=== PATIENT | female | born 1980 | race Caucasian/White ===

== ENCOUNTER 2016-07-20 19:27 | Inpatient (IN) | payer MEDICAID ==
[~2016-07-20] VITALS: Ht 162.6 cm; Wt 84.5 kg
[~2016-07-20 19:27] MED LIST: DOXY-216 PO
[2016-07-20] MEDS ORDERED: ONDANSETRON HCL 4 MG/2 ML VIAL IV ONE (20:00)
[2016-07-20] MEDS ORDERED: HYDROmorphone HCL 2 MG/ML VL IV ONE (20:00)
[2016-07-20 20:16] LABS: Basophils # (auto) 0 uL; Basophils % (auto) 0.1 % (0.0-2.0); Eosinophils # (auto) 0.2 uL; Eosinophils % (auto) 1.4 % (0.0-7.0); Hematocrit 32.6 % (36.0-46.0); Hemoglobin 10.7 g/dL (12.2-16.2); Lymphocytes % (auto) 6.7 % (10.0-50.0); Mean Corpuscular Hemoglobin 27.7 pg (28.0-32.0); Mean Corpuscular Hgb Conc. 32.8 g/dL (32.0-36.0); Mean Corpuscular Volume 84.3 fL (80.0-100.0); Mean Platelet Volume 7.5 fL (7.4-10.4); Monocytes # (auto) 0.8 uL; Monocytes % (auto) 5.1 % (0.0-12.0); Neutrophils # (auto) 12.8 uL; Neutrophils % (auto) 86.7 % (37.0-80.0); Platelet Count (auto) 518 10^3/uL (140-450); Red Cell Distribution Width 16.4 % (11.6-16.0); White Blood Cell 14.8 10^3/uL (4.4-10.8)
[2016-07-20 20:35] LABS: Albumin 2.6 g/dL (3.4-5.0); BUN/Creatinine Ratio 23.8; Calcium 8.3 mg/dL (8.5-10.1); Potassium 3.6 mmol/L (3.5-5.1)
[2016-07-20 20:37] LABS: Bilirubin, Total 0.5 mg/dL (0.2-1.0); Total Protein 7.7 g/dL (6.4-8.2)
[2016-07-20] MEDS ORDERED: ACETAMINOPHEN 325 MG TAB PO ONE (21:15)
[2016-07-20] MEDS ORDERED: metroNIDAZOLE 500MG/100ML 100 ML IV ONE (21:30)
[2016-07-20 22:50] LABS: Urine Bilirubin Negative (Negative); Urine Color Brown (Yellow); Urine Glucose Normal (Normal); Urine Ketone Negative (Negative); Urine Mucus FEW (None Seen); Urine Nitrite Negative (Negative); Urine RBC 690 /hpf (0 - 4); Urine Squamous Epithelial Cell FEW /hpf (<5); Urine Urobilinogen Normal (Negative); Urine WBC Clumps PRESENT /hpf (None Seen)
[2016-07-20 22:53] LABS: Urine Blood 3+ /uL (Negative)
[2016-07-21] VITALS (9 sets, daily range): BP systolic 118–137; BP diastolic 67–87
[2016-07-21] MEDS ORDERED: SODIUM CHLORIDE 0.9% 1,000 ML IV SCH (00:08)
[2016-07-21] MEDS ORDERED: ONDANSETRON HCL 4 MG/2 ML VIAL IV PRN (00:15)
[2016-07-21] MEDS ORDERED: LEVOFLOXACIN 500MG 100 ML IV ONE (00:15)
[2016-07-21] MEDS ORDERED: ACETAMINOPHEN 325 MG TAB PO PRN (00:15)
[2016-07-21] MEDS ORDERED: SODIUM CHLORIDE 0.9% 500 ML IV ONE (00:15)
[2016-07-21] MEDS ORDERED: METOPROLOL TARTRATE 25 MG TAB PO ONE (00:15)
[2016-07-21] MEDS: HYDROmorphone HCL 2 MG/ML VL IV PRN ×6 (01:23→21:35)
[2016-07-21] MEDS: HYDROcodone-ACET 5/325MG TAB PO PRN ×5 (02:59→23:57)
[2016-07-21] MEDS ORDERED: [UNRECOGNIZED DRUG - CODE] PO (04:30)
[2016-07-21] MEDS: FAMOTIDINE 20 MG TAB PO SCH ×2 (09:22→21:35)
[2016-07-21] MEDS ORDERED: IOHEXOL 300 MG/ML 100ML BOTTLE IJ ONE (09:54)
[2016-07-21] MEDS ORDERED: METOPROLOL TARTRATE 25 MG TAB PO SCH (10:00)
[2016-07-21] MEDS ORDERED: HYDROmorphone HCL 2 MG/ML VL IV PRN (11:15)
[2016-07-21] MEDS: SODIUM CHLORIDE 0.9% 1,000 ML IV SCH ×2 (13:30→21:18)
[2016-07-21] MEDS ORDERED: MILK OF MAGNESIA 30ML SUSP PO ONE (20:45)
[2016-07-21] MEDS: LEVOFLOXACIN 500MG 100 ML IV SCH (21:03)
[2016-07-21] MEDS: DOCUSATE SOD 100 MG CAP PO SCH (21:35)
[2016-07-22] MEDS: HYDROmorphone HCL 2 MG/ML VL IV PRN ×8 (00:38→21:58)
[2016-07-22] MEDS: HYDROcodone-ACET 5/325MG TAB PO PRN ×2 (04:35→08:33)
[2016-07-22 04:50] VITALS: BP 118/68
[2016-07-22] MEDS: SODIUM CHLORIDE 0.9% 1,000 ML IV SCH ×3 (05:23→21:30)
[2016-07-22 06:38] LABS: Basophils # (auto) 0 uL; Basophils % (auto) 0.3 % (0.0-2.0); Eosinophils # (auto) 0.4 uL; Hematocrit 26.3 % (36.0-46.0); Hemoglobin 8.7 g/dL (12.2-16.2); Lymphocytes # (auto) 0.7 uL; Lymphocytes % (auto) 8.3 % (10.0-50.0); Mean Corpuscular Hemoglobin 28.1 pg (28.0-32.0); Mean Corpuscular Volume 85.3 fL (80.0-100.0); Monocytes # (auto) 0.7 uL; Monocytes % (auto) 8.4 % (0.0-12.0); Neutrophils # (auto) 6.3 uL; Platelet Count (auto) 378 10^3/uL (140-450); Red Cell Distribution Width 16.7 % (11.6-16.0); White Blood Cell 8.1 10^3/uL (4.4-10.8)
[2016-07-22 06:40] LABS: BUN/Creatinine Ratio 20.7; Bilirubin, Total 0.3 mg/dL (0.2-1.0); Calcium 7.6 mg/dL (8.5-10.1); Potassium 3.8 mmol/L (3.5-5.1); Total Protein 5.9 g/dL (6.4-8.2)
[2016-07-22 09:00] VITALS: BP 145/81
[2016-07-22] MEDS: MORPHINE SULF 30 mg ER tab PO SCH ×2 (09:38→21:57)
[2016-07-22] MEDS: DOCUSATE SOD 100 MG CAP PO SCH ×2 (09:38→21:57)
[2016-07-22] MEDS: FAMOTIDINE 20 MG TAB PO SCH ×2 (09:38→21:57)
[2016-07-22 14:00] VITALS: BP 131/78
[2016-07-22 16:40] VITALS: BP 127/65
[2016-07-22] MEDS ORDERED: FLUCONAZOLE 200MG/100ML 100 ML IV ONE (17:00)
[2016-07-22 20:00] VITALS: BP 136/53
[2016-07-22] MEDS: LEVOFLOXACIN 500MG 100 ML IV SCH (20:49)
[2016-07-22 21:40] VITALS: BP 136/53
[2016-07-23] MEDS: HYDROmorphone HCL 2 MG/ML VL IV PRN ×8 (01:17→23:41)
[2016-07-23 05:07] VITALS: BP 128/64
[2016-07-23] MEDS: SODIUM CHLORIDE 0.9% 1,000 ML IV SCH ×3 (05:30→21:51)
[2016-07-23 05:49] LABS: Hematocrit 24.4 % (36.0-46.0)
[2016-07-23 05:55] LABS: Partial Thromboplastin Time 32.3 sec (22.64-33.71)
[2016-07-23 05:59] LABS: INR 1.22 (0.9-1.15); Prothrombin Time 12.6 sec (9.37-12.3)
[2016-07-23] MEDS ORDERED: LACTULOSE 20Gm/30ML SOLN PO PRN (08:45)
[2016-07-23 09:00] VITALS: BP 134/76
[2016-07-23] MEDS ORDERED: HYDROmorphone HCL 2 MG/ML VL IV ONE (09:15)
[2016-07-23] MEDS: FAMOTIDINE 20 MG TAB PO SCH ×2 (09:58→21:50)
[2016-07-23] MEDS: DOCUSATE SOD 100 MG CAP PO SCH ×2 (09:58→21:51)
[2016-07-23] MEDS: FLUCONAZOLE 200MG/100ML 100 ML IV SCH (09:58)
[2016-07-23] MEDS: MORPHINE SULF 30 mg ER tab PO SCH ×2 (09:58→21:50)
[2016-07-23 13:00] VITALS: BP 127/80
[2016-07-23 17:00] VITALS: BP 136/89
[2016-07-23 19:50] VITALS: BP 132/89
[2016-07-23] MEDS: LEVOFLOXACIN 500MG 100 ML IV SCH (20:42)
[2016-07-23] MEDS: SENNA 8.6 MG TAB PO SCH (21:51)
[2016-07-23 22:00] VITALS: BP 132/84
[2016-07-24] MEDS: HYDROmorphone HCL 2 MG/ML VL IV PRN ×7 (02:41→22:17)
[2016-07-24 05:00] VITALS: BP 131/89
[2016-07-24] MEDS: SODIUM CHLORIDE 0.9% 1,000 ML IV SCH ×3 (05:56→22:15)
[2016-07-24 06:28] LABS: Basophils # (auto) 0 uL; Basophils % (auto) 0.2 % (0.0-2.0); Eosinophils # (auto) 0.6 uL; Eosinophils % (auto) 6.5 % (0.0-7.0); Hematocrit 26.3 % (36.0-46.0); Hemoglobin 8.7 g/dL (12.2-16.2); Lymphocytes # (auto) 0.8 uL; Lymphocytes % (auto) 9.1 % (10.0-50.0); Mean Corpuscular Hemoglobin 28.4 pg (28.0-32.0); Mean Corpuscular Volume 85.9 fL (80.0-100.0); Mean Platelet Volume 6.9 fL (7.4-10.4); Monocytes # (auto) 0.7 uL; Monocytes % (auto) 8.1 % (0.0-12.0); Neutrophils # (auto) 6.7 uL; Neutrophils % (auto) 76.1 % (37.0-80.0); Platelet Count (auto) 390 10^3/uL (140-450); Red Cell Distribution Width 16.5 % (11.6-16.0); White Blood Cell 8.8 10^3/uL (4.4-10.8)
[2016-07-24 08:00] VITALS: BP 131/89
[2016-07-24 09:00] VITALS: BP 116/88
[2016-07-24] MEDS: FAMOTIDINE 20 MG TAB PO SCH ×2 (10:11→22:15)
[2016-07-24] MEDS: DOCUSATE SOD 100 MG CAP PO SCH ×2 (10:11→22:15)
[2016-07-24] MEDS: FLUCONAZOLE 200MG/100ML 100 ML IV SCH (10:11)
[2016-07-24] MEDS: MORPHINE SULF 30 mg ER tab PO SCH ×2 (10:11→22:16)
[2016-07-24] MEDS: ATENOLOL 25 MG TAB PO SCH (10:12)
[2016-07-24] MEDS ORDERED: MIDAZOLAM HCL 1MG/1ML-2 ML VIAL ONE (10:24)
[2016-07-24] MEDS ORDERED: fentaNYL CITRATE 100 MCG/2 ML VL ONE (10:24)
[2016-07-24] MEDS ORDERED: IOHEXOL 350 MG/ML 100ML IJ ONE (10:33)
[2016-07-24] MEDS ORDERED: LIDOCAINE 2%HCL (LOCAL ANESTH.) INJ 20ML MDV ONE (10:33)
[2016-07-24] MEDS ORDERED: NALOXONE HCL 0.4 MG/ML VIAL ONE (10:57)
[2016-07-24] MEDS ORDERED: FLUMAZENIL 0.1 MG/ML INJ 10ML MDV IV ONE (10:58)
[2016-07-24 17:00] VITALS: BP 121/88
[2016-07-24] MEDS: LEVOFLOXACIN 500MG 100 ML IV SCH (22:11)
[2016-07-24] MEDS: SENNA 8.6 MG TAB PO SCH (22:16)
[2016-07-25] MEDS: HYDROmorphone HCL 2 MG/ML VL IV PRN ×4 (01:27→10:57)
[2016-07-25 05:00] VITALS: BP 118/77
[2016-07-25 08:00] LABS: Basophils # (auto) 0 uL; Basophils % (auto) 0.1 % (0.0-2.0); Eosinophils # (auto) 0.3 uL; Eosinophils % (auto) 3.3 % (0.0-7.0); Hematocrit 26.2 % (36.0-46.0); Hemoglobin 8.7 g/dL (12.2-16.2); Mean Corpuscular Hemoglobin 28.5 pg (28.0-32.0); Mean Corpuscular Hgb Conc. 33.3 g/dL (32.0-36.0); Mean Corpuscular Volume 85.5 fL (80.0-100.0); Mean Platelet Volume 7.4 fL (7.4-10.4); Monocytes # (auto) 0.8 uL; Monocytes % (auto) 8.3 % (0.0-12.0); Neutrophils # (auto) 7.5 uL; Neutrophils % (auto) 78.3 % (37.0-80.0); Platelet Count (auto) 415 10^3/uL (140-450); Red Cell Distribution Width 16.6 % (11.6-16.0); White Blood Cell 9.6 10^3/uL (4.4-10.8)
[2016-07-25 08:10] LABS: BUN/Creatinine Ratio 15.7; Calcium 8.4 mg/dL (8.5-10.1); Potassium 4.3 mmol/L (3.5-5.1)
[2016-07-25 09:00] VITALS: BP 133/77
[2016-07-25] MEDS: FLUCONAZOLE 200MG/100ML 100 ML IV SCH (10:44)
[2016-07-25] MEDS: DOCUSATE SOD 100 MG CAP PO SCH (10:46)
[2016-07-25] MEDS: FAMOTIDINE 20 MG TAB PO SCH (10:47)
[2016-07-25] MEDS: ATENOLOL 25 MG TAB PO SCH (10:48)
[2016-07-25 13:00] VITALS: BP 117/84
[2016-07-25] MEDS: MORPHINE SULF 30 mg ER tab PO SCH (13:20)
[2016-07-25] MEDS: SODIUM CHLORIDE 0.9% 1,000 ML IV SCH (13:21)
[2016-07-25] MEDS ORDERED: LEVO-28 PO (14:09)
[2016-07-25] MEDS ORDERED: FLUC200T50 PO (14:09)
[2016-07-25 15:07] VITALS: BP 133/77
[2016-07-25] MEDS ORDERED: ATE25T PO (16:12)
== END 2016-07-25 16:00 | disposition hospice, home (50) | DRG 710 ==
LOC: ER 19:30 → OVERFLOW 19:31 → WEST WING 07-21 02:31
PROVIDERS: ADMIT Nurse Practitioner; ATTEND Internal Medicine
PROC: 0T9330Z Drainage of Right Kidney Pelvis with Drainage Device, Percutaneous Approach (ICD-10-PCS; principal; 2016-07-20)
DX: A41.9 Sepsis, unspecified organism (principal); N17.0 Acute kidney failure with tubular necrosis; E43 Unspecified severe protein-calorie malnutrition; C78.00 Secondary malignant neoplasm of unspecified lung; C77.9 Secondary and unspecified malignant neoplasm of lymph node, unspecified; C78.7 Secondary malignant neoplasm of liver and intrahepatic bile duct; N13.30 Unspecified hydronephrosis; I10 Essential (primary) hypertension; C53.9 Malignant neoplasm of cervix uteri, unspecified; N12 Tubulo-interstitial nephritis, not specified as acute or chronic; R19.09 Other intra-abdominal and pelvic swelling, mass and lump; N39.0 Urinary tract infection, site not specified; F17.210 Nicotine dependence, cigarettes, uncomplicated; K76.9 Liver disease, unspecified; Z82.0 Family history of epilepsy and other diseases of the nervous system; Z68.32 Body mass index [BMI] 32.0-32.9, adult; Z82.49 Family history of ischemic heart disease and other diseases of the circulatory system; Z83.3 Family history of diabetes mellitus; Z85.41 Personal history of malignant neoplasm of cervix uteri; Z88.0 Allergy status to penicillin; N10 Acute pyelonephritis
CPT/HCPCS: 10022; 36415; 51702; 74176; 74177; 76942; 77012; 80048; 80053; 81001; 82150; 83605; 83690; 85014; 85018; 85025; 85048; 85610; 85730; 87040; 87086; 94761; 96365; 96375; 96376; J1450; J1956; J2250; J2405; J3490